=== PATIENT | female | born 1965 | race Caucasian/White ===

== ENCOUNTER 2019-04-20 22:01 | Inpatient (IN) ==
[2019-04-20] MEDS ORDERED: Acetaminophen 1000mg Inj 1,000 MG/100 ML VIAL IV ONE (22:44)
[2019-04-20] MEDS ORDERED: Sodium Chloride 0.9% 1,000 ML PRIMARY IV ONE (22:44)
[2019-04-20] MEDS ORDERED: ONDANSETRON 4 MG/2 ML VIAL IVP ONE (22:44)
[2019-04-20] MEDS ORDERED: HYDROmorphone 2 MG/1 ML IVP ONE (23:06)
[2019-04-20 23:17] LABS: BLOOD UREA NITROGEN 19 mg/dL (7-22); BUN/CREATININE RATIO 31.66 (6-20)
[2019-04-20 23:24] LABS: BASOPHILS # (AUTO) 0.03 10*3/UL; BASOPHILS % (AUTO) 0.4 % (0-1); EOSINOPHILS # (AUTO) 0.06 10*3/UL; EOSINOPHILS % (AUTO) 0.7 % (0-8); Hematocrit [HCT] 39.9 % (37.0-47.0); LYMPHOCYTES # (AUTO) 2.02 10*3/uL; MEAN CORPUSCULAR HGB CONC 35.1 g/dL (33-37); MEAN CORPUSCULAR VOLUME 88.9 FL (81-99); MEAN PLATELET VOLUME 11.6 FL (7.4-12.2); MONOCYTES # (AUTO) 0.66 10*3/UL (0.3-0.8); MONOCYTES % (AUTO) 7.7 % (5-15); NEUTROPHILS # (AUTO) 5.71 10*3/UL; NEUTROPHILS % (AUTO) 66.9 % (50-80); RED BLOOD COUNT 4.49 10^6/uL (4.20-5.40)
[2019-04-20 23:27] LABS: PLATELET MORPHOLOGY COMMENT NORMAL MORPHOLOGY (NORM); RBC MORPHOLOGY COMMENT NORMAL MORPHOLOGY (NORM); WBC MORPHOLOGY COMMENT NORMAL MORPHOLOGY (NORM)
[2019-04-20 23:33] LABS: VENOUS PCO2 34.3 mmHg (45-55); VENOUS PH 7.41 (7.32-7.42)
[2019-04-20] MEDS ORDERED: Glucagon Inj Vial 1 MG/ML VIAL IM PRN (23:42)
[2019-04-20] MEDS ORDERED: DEXTROSE 50%-WATER SYRINGE 50 ML SYRINGE IVP PRN (23:42)
[2019-04-20] MEDS ORDERED: DEXTROSE 31 GM GEL PO PRN (23:42)
[2019-04-20] MEDS ORDERED: Insulin Regular Inj 100 UNIT in Sodium Chloride 0.9% 99 ML IV SCH (23:45)
[2019-04-20 23:47] LABS: BILIRUBIN,URINE NEGATIVE (NEG); CLARITY,URINE CLEAR (CLEAR); COLOR,URINE YELLOW (Y); GLUCOSE, URINE (UA) 500 mg/dL (NEG); OCCULT BLOOD,URINE NEGATIVE (NEG); PROTEIN,URINE NEGATIVE (NEG); UROBILINOGEN,URINE 0.2 EU/dL (0.2)
[2019-04-20 23:48] LABS: URINE SAMPLE TYPE CLEAN CATCH URINE
[2019-04-21] MEDS ORDERED: Glucagon Inj Vial 1 MG/ML VIAL IM PRN ×2 (00:50)
[2019-04-21] MEDS ORDERED: Sodium Chloride 0.9% 1,000 ML PRIMARY IV SCH (00:50)
[2019-04-21] MEDS ORDERED: DEXTROSE 50%-WATER SYRINGE 50 ML SYRINGE IVP PRN ×2 (00:50)
[2019-04-21] MEDS ORDERED: Insulin Regular Inj 100 UNIT in Sodium Chloride 0.9% 99 ML IV SCH ×4 (00:50)
[2019-04-21] MEDS ORDERED: DEXTROSE 31 GM GEL PO PRN ×2 (00:50)
[2019-04-21] MEDS ORDERED: LIDOCAINE HCL 2 % 10 ML JELLY URO-JECT TOPICAL PRN (00:50)
[2019-04-21] MEDS ORDERED: LIDOCAINE W/ SODIUM BICARB 0.5 ML SYR SUBD PRN (00:50)
[2019-04-21] MEDS ORDERED: INSULIN REGULAR, HUMAN 100 UNIT/1 ML - 3 ML IV ONE (00:50)
[2019-04-21] MEDS ORDERED: Sodium Chloride 0.9% 1,000 ML PRIMARY IV ONE (00:50)
[2019-04-21 01:29] LABS: AMPHETAMINE SCREEN NEGATIVE (NEG); CANNABINOID SCREEN,URINE POSITIVE (NEG); COCAINE SCREEN NEGATIVE (NEG); METHADONE URINE SCREEN NEGATIVE (NEG); METHAMPHETAMINES SCREEN,URINE NEGATIVE (NEG); OPIATE SCREEN,URINE NEGATIVE (NEG); URINE SAMPLE TYPE CLEAN CATCH URINE; URINE SPECIFIC GRAVITY - MAN 1.026
[2019-04-21 01:29] LABS: BLOOD UREA NITROGEN 18 mg/dL (7-22)
[2019-04-21] MEDS ORDERED: Influenza 19-20 Vaccine (6mo+) 60 MCG/0.5 ML SYRINGE IM ONE ×2 (01:36→11:57)
[2019-04-21] MEDS: oxyCODONE IR Tab 15 MG TAB PO SCH ×4 (01:45→20:59)
[2019-04-21] MEDS: Pregabalin Cap 150mg capsule PO SCH ×4 (01:45→20:59)
[2019-04-21] MEDS: HEPARIN 5000 UNIT/1 ML SUBCUT SCH ×3 (01:45→17:10)
[2019-04-21] MEDS ORDERED: NICOTINE 21 MG /DAY PATCH TRANSDERM ONE (02:37)
[2019-04-21] MEDS: LORazepam 1 MG TABLET PO PRN (03:03)
[2019-04-21 05:17] LABS: BLOOD UREA NITROGEN 16 mg/dL (7-22); BUN/CREATININE RATIO 26.66 (6-20)
[2019-04-21 05:30] LABS: VENOUS PH 7.41 (7.32-7.42)
[2019-04-21] MEDS ORDERED: Magnesium Sulfate 2gm (Premix) 2 GM/50 ML BAG IV ONE (05:37)
[2019-04-21] MEDS: D5-1/2NS 1,000 ML PRIMARY IV SCH ×2 (06:12→08:35)
[2019-04-21] MEDS: CARVEDILOL 3.125 MG TABLET PO SCH (08:25)
[2019-04-21] MEDS: ASPIRIN 81 MG (BABY) CHEWABLE TABLET PO SCH (08:25)
[2019-04-21] MEDS: NICOTINE 21 MG /DAY PATCH TRANSDERM SCH (08:27)
[2019-04-21] MEDS: Patch Removal PATCH TRANSDERM SCH (08:30)
[2019-04-21] MEDS ORDERED: PANTOPRAZOLE IV 40 MG VIAL IVP SCH (09:00)
[2019-04-21 09:48] LABS: BLOOD UREA NITROGEN 16 mg/dL (7-22)
[2019-04-21] MEDS: ONDANSETRON 4 MG/2 ML VIAL IVP PRN ×2 (12:24→17:21)
[2019-04-21 13:11] LABS: BLOOD UREA NITROGEN 16 mg/dL (7-22)
[2019-04-21] MEDS: POLYETHYLENE GLYCOL 3350 17 GM POWDER PO SCH (15:13)
[2019-04-21 17:37] LABS: BLOOD UREA NITROGEN 16 mg/dL (7-22)
[2019-04-21] MEDS ORDERED: POLYETHYLENE GLYCOL 3350 17 GM POWDER PO ONE (18:14)
[2019-04-21] MEDS: MAG HYDROX/AL HYDROX/SIMETH 30 ML SUSP PO PRN (20:02)
[2019-04-21] MEDS ORDERED: Insulin Glargine SoloStar Inj 100 UNIT/ML INSULN.PEN SUBCUT SCH (21:00)
[2019-04-22] MEDS: HEPARIN 5000 UNIT/1 ML SUBCUT SCH ×2 (00:55→08:15)
[2019-04-22] MEDS ORDERED: Insulin Lispro Flexpen 300 UNIT/3 ML INSULN.PEN SUBCUT ONE (01:01)
[2019-04-22] MEDS: MAG HYDROX/AL HYDROX/SIMETH 30 ML SUSP PO PRN (01:23)
[2019-04-22] MEDS: LORazepam 1 MG TABLET PO PRN ×3 (02:19→22:33)
[2019-04-22] MEDS ORDERED: POLYETHYLENE GLYCOL 3350 17 GM POWDER PO ONE (02:51)
[2019-04-22 05:18] LABS: Hematocrit [HCT] 40.3 % (37.0-47.0); Hemoglobin [HGB] 13.8 g/dL (12.0-16.0); MEAN CORPUSCULAR HGB CONC 34.2 g/dL (33-37); RED BLOOD COUNT 4.48 10^6/uL (4.20-5.40)
[2019-04-22 05:27] LABS: BLOOD UREA NITROGEN 14 mg/dL (7-22); SERUM ALBUMIN 3.4 g/dL (3.5-4.8)
[2019-04-22 05:55] LABS: BAND NEUTROPHILS % 0 % (0-10); BASOPHILS % (MANUAL) 1 % (0-1); EOSINOPHILS % (MANUAL) 1 % (0-8); METAMYELOCYTES % 0 %; MONOCYTES % (MANUAL) 7 % (0-12); MYELOCYTES % 0 %; NEUTROPHILS % (MANUAL) 63 % (50-80); PLATELET MORPHOLOGY COMMENT NORMAL MORPHOLOGY (NORM); PROMYELOCYTES % 0 %; RBC MORPHOLOGY COMMENT NORMAL MORPHOLOGY (NORM); WBC MORPHOLOGY COMMENT NORMAL MORPHOLOGY (NORM)
[2019-04-22] MEDS ORDERED: PANTOPRAZOLE 40 MG TABLET PO SCH (07:00)
[2019-04-22] MEDS: Patch Removal PATCH TRANSDERM SCH (08:03)
[2019-04-22] MEDS: ASPIRIN 81 MG (BABY) CHEWABLE TABLET PO SCH (08:08)
[2019-04-22] MEDS: CARVEDILOL 3.125 MG TABLET PO SCH (08:08)
[2019-04-22] MEDS: NICOTINE 21 MG /DAY PATCH TRANSDERM SCH (08:08)
[2019-04-22] MEDS: POLYETHYLENE GLYCOL 3350 17 GM POWDER PO SCH (08:08)
[2019-04-22] MEDS: Pregabalin Cap 150mg capsule PO SCH ×3 (08:09→20:00)
[2019-04-22] MEDS: oxyCODONE IR Tab 15 MG TAB PO SCH ×3 (08:09→20:00)
[2019-04-22] MEDS: Insulin Lispro Flexpen 300 UNIT/3 ML INSULN.PEN SUBCUT SCH ×5 (08:31→21:50)
[2019-04-22] MEDS: ONDANSETRON 4 MG/2 ML VIAL IVP PRN ×3 (08:48→21:04)
[2019-04-22] MEDS ORDERED: LACTULOSE 20 GM PACKET PO SCH ×3 (09:08→21:00)
[2019-04-22] MEDS ORDERED: Fleet Enema 133ml RECTAL ONE (09:09)
[2019-04-22] MEDS ORDERED: Fleet Enema w/Mineral Oil 133ml RECTAL ONE (09:10)
[2019-04-22 09:33] VITALS: RESP 18
[2019-04-22] MEDS ORDERED: DEXTROSE 50%-WATER SYRINGE 50 ML SYRINGE IVP PRN (11:13)
[2019-04-22] MEDS ORDERED: MAG HYDROX/AL HYDROX/SIMETH 30 ML SUSP PO PRN (11:13)
[2019-04-22] MEDS ORDERED: DEXTROSE 31 GM GEL PO PRN (11:13)
[2019-04-22] MEDS ORDERED: Glucagon Inj Vial 1 MG/ML VIAL IM PRN (11:13)
[2019-04-22] MEDS ORDERED: Insulin Lispro Flexpen 300 UNIT/3 ML INSULN.PEN SUBCUT SCH (11:15)
[2019-04-22 13:37] LABS: HEMOGLOBIN A1C 14.3 % (4.2-6.0)
[2019-04-22] MEDS ORDERED: LACTULOSE 20 GM PACKET PO ONE (14:29)
[2019-04-22 15:27] VITALS: BP 157/89; TEMP 97.7; O2SAT 96
[2019-04-22] MEDS ORDERED: HEPARIN 5000 UNIT/1 ML SUBCUT SCH (16:50)
[2019-04-22] MEDS ORDERED: Insulin Glargine SoloStar Inj 100 UNIT/ML INSULN.PEN SUBCUT SCH (21:00)
[2019-04-23] MEDS ORDERED: NICOTINE 21 MG /DAY PATCH TRANSDERM SCH (09:00)
[2019-04-23] MEDS ORDERED: CARVEDILOL 3.125 MG TABLET PO SCH (09:00)
[2019-04-23] MEDS ORDERED: ASPIRIN 81 MG (BABY) CHEWABLE TABLET PO SCH (09:00)
[2019-04-23] MEDS ORDERED: Patch Removal PATCH TRANSDERM SCH (09:00)
== END 2019-04-23 00:40 | disposition left against medical advice (07) | DRG 638 ==
LOC: ER 22:01 → ICU 04-21 00:14 → MED/SURG 04-22 11:15
PROVIDERS: ADMIT Internal Medicine; ATTEND Internal Medicine